=== PATIENT | male | born 1980 | race Two or more races ===

== ENCOUNTER 2018-12-21 16:45 | Emergency (ER) | payer MEDICAID, OTHER ==
[~2018-12-21] VITALS: Ht 165.1 cm; Wt 73.5 kg
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
[2018-12-21] MEDS ORDERED: FLUORESCEIN SODIUM OPHTH 1 EA STRIP ONE (17:47)
[2018-12-21] MEDS ORDERED: HYDROCODONE/APAP 10/325MG 1 EA TABLET ONE (17:48)
[2018-12-21] MEDS ORDERED: TETRACAINE HCL 0.5% OPHTALMIC 15 ML BOTTLE OP ONE (18:00)
[2018-12-21] MEDS ORDERED: FLUORESCEIN SODIUM OPHTH 1 EA STRIP OP ONE (18:00)
[2018-12-21] MEDS ORDERED: HYDROCODONE/APAP 10/325MG 1 EA TABLET PO ONE (18:00)
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
[2018-12-21 19:58] LABS: BASOPHILS % (AUTO) 0.5 % (0.0-2.0); EOSINOPHILS % (AUTO) 1.2 % (0.0-6.0); HEMATOCRIT 44 % (39-51); LYMPHOCYTES # (AUTO) 2.2 /CMM (0.8-4.8); LYMPHOCYTES % (AUTO) 31.1 % (20.0-44.0); MEAN CORPUSCULAR HGB CONC 34 g/dl (31.0-36.0); MEAN CORPUSCULAR VOLUME 88 fL (80-96); MONOCYTES # (AUTO) 0.6 /CMM (0.1-1.30); MONOCYTES % (AUTO) 8.3 % (2.0-12.0); NEUTROPHILS # (AUTO) 4.2 /CMM (1.8-8.9); NEUTROPHILS % (AUTO) 58.9 % (43.0-81.0); PLATELET COUNT (AUTO) 255 /CMM (150-450); RED BLOOD CELL COUNT(AUTO) 5.03 MIL/uL (4.5-6.0); WHITE BLOOD COUNT (AUTO) 7.2 K/uL (4.3-11.0)
[2018-12-21] MEDS ORDERED: ONDANSETRON HCL/PF - ER 4 MG/2 ML VIAL IV ONE (20:00)
[2018-12-21] MEDS ORDERED: MORPHINE SULFATE INJ 4 MG/ML DISP.SYRIN IV ONE (20:00)
[2018-12-21] MEDS ORDERED: IV NS 0.9% 1,000 ML BAG IV ONE (20:00)
[2018-12-21] MEDS ORDERED: ONDANSETRON HCL/PF 4 MG/2 ML VIAL ONE (20:12)
[2018-12-21] MEDS ORDERED: MORPHINE SULFATE INJ 4 MG/ML DISP.SYRIN ONE (20:13)
[2018-12-21 20:19] LABS: CREATININE 0.8 mg/dL (0.6-1.3); POTASSIUM 4.1 mmol/L (3.5-5.1)
[2018-12-21 20:30] LABS: BILIRUBIN,DIRECT 0.1 mg/dL (0.0-0.2); BILIRUBIN,TOTAL 0.6 mg/dL (0.2-1.0); TOTAL PROTEIN, SERUM 7.6 g/dL (6.4-8.2)
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
[2018-12-21 21:20] VITALS: BP 121/75
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
--- NOTE | 2018-12-21 22:16 | NUR ---
ACCEPTED AT [facility] ER BY DR HUNTER. NUMBER FOR REPORT: [phone]
--- NOTE | 2018-12-21 22:20 | NUR ---
[facility] [id number]
--- NOTE | 2018-12-21 22:35 | NUR ---
TRANSPORTATION: CALLED [facility], 90 MIN ETA [phone]), TRIP #[id number]
--- NOTE | 2018-12-21 23:26 | NUR ---
REPORT GIVEN TO ZEESHAN PARMAR AT [facility].
[2018-12-21] MEDS ORDERED: MORPHINE SULFATE INJ 2 MG/ML DISP.SYRIN ONE (23:52)
[2018-12-22] MEDS ORDERED: MORPHINE SULFATE INJ 2 MG/ML DISP.SYRIN IV ONE
--- NOTE | 2018-12-22 00:21 | NUR ---
PT TRANSPORTED [facility]IA [facility] TO [facility], REPORT GIVEN TO STAFF. PT LEFT IN STABLE CONDITION, VSS,
== END 2018-12-22 00:21 | disposition home or self-care (01) ==
LOC: ER 16:48
DX: S02.31XA Fracture of orbital floor, right side, initial encounter for closed fracture (principal); S02.40CA Maxillary fracture, right side, initial encounter for closed fracture; S02.2XXA Fracture of nasal bones, initial encounter for closed fracture; S05.11XA Contusion of eyeball and orbital tissues, right eye, initial encounter; S16.1XXA Strain of muscle, fascia and tendon at neck level, initial encounter; R42 Dizziness and giddiness; Z60.2 Problems related to living alone; Z98.890 Other specified postprocedural states; Y04.0XXA Assault by unarmed brawl or fight, initial encounter; Y93.89 Activity, other specified; Y92.89 Other specified places as the place of occurrence of the external cause; Y99.8 Other external cause status
CPT/HCPCS: 36415; 70450; 70486; 72125; 80048; 80076; 85025; 85730; 96361; 96374; 96375; 96376; 99284; J2270 ×2; J2405; J7030

== ENCOUNTER 2020-11-24 20:06 | Emergency (ER) | payer OTHER ==
[~2020-11-24] VITALS: Ht 167.6 cm; Wt 77.1 kg
[2020-11-24] MEDS ORDERED: IV NS 0.9% 500 ML BAG IV ONE (21:00)
[2020-11-24 21:17] LABS: BASOPHILS % (AUTO) 0.5 % (0.0-2.0); EOSINOPHILS % (AUTO) 0.6 % (0.0-6.0); HEMATOCRIT 44 % (39-51); LYMPHOCYTES # (AUTO) 1.5 K/uL (0.8-4.8); LYMPHOCYTES % (AUTO) 18.7 % (20.0-44.0); MEAN CORPUSCULAR HGB CONC 34 g/dl (31.0-36.0); MEAN CORPUSCULAR VOLUME 89 fL (80-96); MONOCYTES # (AUTO) 0.7 K/uL (0.1-1.30); MONOCYTES % (AUTO) 9.3 % (2.0-12.0); NEUTROPHILS # (AUTO) 5.6 K/uL (1.8-8.9); NEUTROPHILS % (AUTO) 70.9 % (43.0-81.0); PLATELET COUNT (AUTO) 284 K/uL (150-450); RED BLOOD CELL COUNT(AUTO) 5.01 MIL/uL (4.5-6.0)
[2020-11-24 21:39] LABS: CREATININE 0.7 mg/dL (0.6-1.3); POTASSIUM 4.2 mmol/L (3.5-5.1)
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
[2020-11-24 21:46] LABS: ALBUMIN 3.9 g/dL (3.4-5.0); BILIRUBIN,DIRECT 0.1 mg/dL (0.0-0.2); BILIRUBIN,TOTAL 0.4 mg/dL (0.2-1.0); TOTAL PROTEIN, SERUM 7.6 g/dL (6.4-8.2)
[2020-11-24] MEDS ORDERED: IV NS 0.9% 250 ML IV ONE (21:49)
[2020-11-24] MEDS ORDERED: IOHEXOL-300 100 ML VIAL IV ONE (21:49)
--- NOTE | 2020-11-24 21:50 | NUR ---
PATIENT PICKED UP BY RAD STAFF FOR CT HEAD, CERVICAL SPINE, FACIAL, CHEST, ABDOMEN
--- NOTE | 2020-11-24 22:14 | NUR ---
PATIENT CAME BACK FROM CT.
[2020-11-24] MEDS ORDERED: NAPR-1009 PO (22:32)
--- NOTE | 2020-11-24 23:30 | NUR ---
[facility] at bedside for wound care
--- NOTE | 2020-11-24 23:32 | NUR ---
Patient discharged to home in stable condition. Written and verbal after care instructions given. Patient verbalizes understanding of instruction. IV removed. Catheter intact and site benign. Pressure and 4x4 applied to site. No bleeding noted. Pt ambulatory with a steady gait
[2020-11-25 01:50] VITALS: BP 121/84
== END 2020-11-24 23:32 | disposition home or self-care (01) ==
LOC: ER 20:06
DX: S00.81XA Abrasion of other part of head, initial encounter (principal); F17.200 Nicotine dependence, unspecified, uncomplicated; Z60.2 Problems related to living alone; V49.49XA Driver injured in collision with other motor vehicles in traffic accident, initial encounter; Y93.89 Activity, other specified; Y92.413 State road as the place of occurrence of the external cause; Y99.8 Other external cause status
CPT/HCPCS: 70450; 70486; 71045; 71260; 72125; 74177; 80048; 80076; 80307; 80320; 85025; 99285; J7040; J7050; Q9967; 36415; G0480

== ENCOUNTER 2023-03-23 19:18 | Emergency (ER) | payer OTHER ==
[~2023-03-23] VITALS: Ht 167.6 cm; Wt 81.6 kg
[~2023-03-23 19:18] MED LIST: NAPR-1009 PO
[2023-03-23] MEDS ORDERED: AZIT250T13 PO (21:51)
[2023-03-23] MEDS ORDERED: GUAI1TBM19 PO (21:51)
[2023-03-23 21:59] VITALS: BP 122/76; TEMP 98; O2SAT 98
== END 2023-03-23 22:00 | disposition home or self-care (01) ==
LOC: ER 19:28
DX: H66.91 Otitis media, unspecified, right ear (principal); J06.9 Acute upper respiratory infection, unspecified; F17.200 Nicotine dependence, unspecified, uncomplicated; Z79.899 Other long term (current) drug therapy

== ENCOUNTER 2023-08-15 17:45 | Emergency (ER) | payer OTHER ==
[~2023-08-15] VITALS: Ht 165.1 cm; Wt 77.6 kg
[~2023-08-15 17:45] MED LIST changes: +AZIT250T13 PO; +GUAI1TBM19 PO
[2023-08-15 18:34] VITALS: BP 134/79; TEMP 98.6; O2SAT 100
[2023-08-15] MEDS ORDERED: ERYT3.5O9 RIGHTEYE (20:21)
== END 2023-08-15 20:21 | disposition home or self-care (01) ==
LOC: ER 17:47
DX: H01.002 Unspecified blepharitis right lower eyelid (principal); F17.200 Nicotine dependence, unspecified, uncomplicated; Z79.899 Other long term (current) drug therapy

== ENCOUNTER → 2023-08-26 | Emergency (ER) | payer OTHER ==
[~2023-08-26] VITALS: Ht 167.6 cm; Wt 77.1 kg
[~2023-08-26] MED LIST changes: +AMOX875T2 PO; +ERYT3.5O9 RIGHTEYE; +GUAI-671 PO
[2023-08-26 20:57] VITALS: BP 122/86; TEMP 98.1; O2SAT 96
== END | disposition home or self-care (01) ==
LOC: ER 17:33
DX: H66.92 Otitis media, unspecified, left ear (principal); J02.9 Acute pharyngitis, unspecified; F19.10 Other psychoactive substance abuse, uncomplicated; F17.200 Nicotine dependence, unspecified, uncomplicated; Z20.822 Contact with and (suspected) exposure to COVID-19
CPT/HCPCS: 86403-TC; 87070-TC

== ENCOUNTER 2023-09-07 20:32 | Emergency (ER) | payer OTHER ==
[~2023-09-07] VITALS: Ht 167.6 cm; Wt 79.4 kg
[~2023-09-07 20:32] MED LIST changes: -GUAI-671 PO
[2023-09-07 23:11] VITALS: BP 124/79; TEMP 98.2; O2SAT 98
[2023-09-07] MEDS ORDERED: CIPR7.5D9 LEFT EAR (23:17)
== END 2023-09-07 23:26 | disposition home or self-care (01) ==
LOC: ER 20:50
DX: J02.9 Acute pharyngitis, unspecified (principal); H60.92 Unspecified otitis externa, left ear; F19.10 Other psychoactive substance abuse, uncomplicated; F17.200 Nicotine dependence, unspecified, uncomplicated